=== PATIENT | female | born 1950 | race Caucasian/White ===

== ENCOUNTER 2020-04-24 12:25 | Outpatient (CLI) | payer MEDICARE, SELFPAY ==
--- NOTE | ~2020-04-24 | XR_ITS ---
EXAMINATION: XR chest 2V EXAM DATE: 04/24/2020 12:48 INDICATION: Abnormal EKG. TECHNIQUE: Frontal and lateral projections of the chest obtained and reviewed. Comparison is made to prior examination from 09/04/2016. FINDINGS: The lungs are clear. There are no pleural effusions. The cardiomediastinal silhouette is within normal limits. There is no pneumothorax suspected. Left axillary surgical clips. IMPRESSION: No acute cardiopulmonary findings. Reviewed, dictated and finalized at location A.
== END 2020-04-24 12:26 | disposition home or self-care (01) ==
PROVIDERS: PCP Family Medicine; Visit Provider Family Medicine
DX: E78.2 Mixed hyperlipidemia (principal); R73.9 Hyperglycemia, unspecified; R94.31 Abnormal electrocardiogram [ECG] [EKG]
CPT/HCPCS: 71046

== ENCOUNTER 2020-04-30 09:28 | Outpatient (CLI) | payer MEDICARE, SELFPAY ==
--- NOTE | 2020-04-30 | EST_ITS ---
Patient Info Name: Keke Mccracken Age: 69 years : 1950 Gender: Female Ht: 63 in Wt: 155 lbs BSA: 1.79 m2 Exam Date: 04/30/2020 11:01 AM Exam Location: [facility] Stress Patient Status: Outpatient Admit Date: 04/30/2020 Staff Ordering Physician: Jaylin Cadet MD Attending Provider: Jaylin Cadet MD Exercise Technologist: Perez Hou RDCS, RT Exercise Physician: Uzair Dempsey DO Exam Type: CA stress yobani w NM Study Info A regadenoson stress test was performed. Summary 1. 1. Negative lexiscan stress test for ischemic ST changes by ECG criteria. 2. 2. Baseline hypertension. 3. 3. Nuclear scan to follow and will be reported separately. Please correlate with it. 4. 4. Patient informed of the above results. Protocol: Lexiscan Stress ECG Details Stage: REST Duration (min): 2 min : 47 sec HR (bpm): 69 SBP (mmHg): 174 DBP (mmHg): 92 Stage: REST Duration (min): 7 min : 13 sec HR (bpm): 69 SBP (mmHg): 174 DBP (mmHg): 92 Stage: STAGE 1 Duration (min): 1 min : 0 sec HR (bpm): 88 SBP (mmHg): 174 DBP (mmHg): 92 Stage: RECOVERY Duration (min): 1 min : 0 sec HR (bpm): 96 SBP (mmHg): 182 DBP (mmHg): 74 Stage: RECOVERY Duration (min): 2 min : 0 sec HR (bpm): 94 SBP (mmHg): 167 DBP (mmHg): 80 Stage: RECOVERY Duration (min): 3 min : 0 sec HR (bpm): 90 SBP (mmHg): 158 DBP (mmHg): 82 Stage: RECOVERY Duration (min): 3 min : 15 sec HR (bpm): 94 SBP (mmHg): 158 DBP (mmHg): 82 Rest HR: 69 bpm Peak HR: 96 bpm Rest Sys BP: 174 mmHg Peak Sys BP: 182 mmHg Max Pred HR: 149 bpm % Max Pred HR: 64 % Target HR: 127 bpm Max RPP: 17,472 bpm*mmHg Termination Reason: Completed protocol Cardiac Symptoms: Headache Total Time: 1 min : 0 sec Rest Santos BP: 92 mmHg Peak Santos BP: 74 mmHg Total Dose: 0.4 mg Resting ECG Sinus rhythm, IRBBB. Stress ECG No ST changes. Arrhythmias None. Report Signatures
--- NOTE | ~2020-04-30 | NM_ITS ---
EXAMINATION: NM yobani stress w perfusion EXAM DATE: 04/30/2020 12:35 INDICATION: Abnormal electrocardiogram. TECHNIQUE: Rest images were obtained following intravenous administration of 9 mCi Tc99m tetrofosmin (Myoview). The patient was infused intravenously with Lexiscan (regadenoson). Then, 27.7 mCi Tc99m te trofosmin (Myoview) was administered intravenously, and stress images were obtained. Data was reconst ructed into short axis and horizontal and vertical long axis SPECT images. Gated SPECT images were al so obtained. There is no prior study for comparison. FINDINGS: There is no reversible or fixed perfusion abnormality to suggest ischemia or infarction. Th ere is normal left ventricular wall motion. End diastolic volume: 70 mL. End-systolic volume: 19 mL. Left ventricular ejection fraction: 73%. IMPRESSION: 1. Normal myocardial perfusion at rest and during stress. 2. Left ventricular ejection fraction measuring 73%. Reviewed, dictated and finalized at location B.
== END 2020-04-30 09:29 | disposition home or self-care (01) ==
LOC: ANHCARD 09:37
PROVIDERS: PCP Family Medicine; Visit Provider Family Medicine
DX: R94.31 Abnormal electrocardiogram [ECG] [EKG] (principal); I10 Essential (primary) hypertension
CPT/HCPCS: 78452; 93017; A9502; J2785

== ENCOUNTER 2020-05-01 17:19 | Outpatient (CLI) | payer MEDICARE, SELFPAY ==
--- NOTE | ~2020-05-01 | MM_ITS ---
EXAMINATION: MM screening leonor BI w sharad HISTORY: Screening TECHNIQUE: Craniocaudal and mediolateral oblique 3-D tomosynthesis images were obtained and synthetic 2-D images were generated. CAD analysis was submitted and interpreted. COMPARISON: Comparison to multiple prior studies sequentially, with oldest reviewed study dated 07/2013. BREAST PARENCHYMAL COMPOSITION: There are scattered areas of fibroglandular density. FINDINGS: There is no evidence of suspicious mass, calcification, or architectural distortion to sugg est malignancy in either breast. There has been no suspicious interval change. IMPRESSION: 1. No mammographic evidence of malignancy. 2. Recommend routine screening mammography in one year. BI-RADS Category 1: Negative Reviewed, dictated and finalized at location A.
== END 2020-05-01 17:20 | disposition home or self-care (01) ==
PROVIDERS: PCP Family Medicine; Visit Provider Family Medicine
DX: Z12.31 Encounter for screening mammogram for malignant neoplasm of breast (principal)
CPT/HCPCS: 77063; 77067

== ENCOUNTER 2021-07-30 14:55 | Outpatient (CLI) | payer MEDICARE, SELFPAY ==
--- NOTE | ~2021-07-30 | MM_ITS ---
EXAMINATION: MM screening leonor BI w sharad HISTORY: Screening mammogram, family history of breast cancer in her sister. TECHNIQUE: Craniocaudal and mediolateral oblique 3-D tomosynthesis images were obtained and synthetic 2-D images were generated. CAD analysis was submitted and interpreted. COMPARISON: 05/01/2020, 03/09/2019, 12/14/2017 BREAST PARENCHYMAL COMPOSITION: The right breast is heterogeneously dense, which may obscure small ma sses. There are scattered areas of fibroglandular density in the left breast. This discrepancy likely relates to prior treatment for left breast cancer. FINDINGS: There is no evidence of suspicious mass, calcification, or architectural distortion to sugg est malignancy in either breast. There has been no suspicious interval change. IMPRESSION: 1. No mammographic evidence of malignancy. 2. Recommend routine screening mammography in one year. BI-RADS Category 1: Negative Reviewed, dictated and finalized at location A. E EDITOR
== END 2021-07-30 14:56 | disposition home or self-care (01) ==
LOC: ANHIMG 14:56
PROVIDERS: PCP Family Medicine; Visit Provider Physician Assistant Medical
DX: Z12.31 Encounter for screening mammogram for malignant neoplasm of breast (principal)
CPT/HCPCS: 77063; 77067

== ENCOUNTER 2022-06-11 14:30 | Outpatient (CLI) | payer MEDICARE, SELFPAY ==
--- NOTE | ~2022-06-11 | DEXA_ITS ---
Bone Density Report Name: ERICH FERREIRA Age: 72 Sex: Female Ethnicity: White Date of : 1950 Indication: postmenopausal; screening for osteoporosis; height loss; cancer; hysterectomy; Referring Provider: KSENIA APARICIO Study: Bone densitometry was performed. Exam Date: June 11, 2022 Accession number: [id number] Bone Density: Region BMD T-score Z-score Classification AP Spine(L1-L4) 1.118 0.6 3.0 Normal Femoral Neck (Left) 0.751 -0.9 1.1 Normal Total Hip (Left) 0.924 -0.1 1.6 Normal Femoral Neck (Right) 0.737 -1.0 1.0 Normal Total Hip (Right) 0.895 -0.4 1.3 Normal Total Hip Mean 0.910 -0.3 1.5 Normal World Health Organization criteria for BMD impression classify patients as: Normal (T-score at or above -1.0), Osteopenia (T-score between -1.0 and -2.5), or Osteoporosis (T-score at or below -2.5). 10-year Fracture Risk: FRAX not reported because: All T-scores for Spine Total, Hip Total, Femoral Neck at or above -1.0 Previous Exams: Region Exam Age BMD T-score BMD Change BMD Change Date g/cm2 vs Baseline vs Previous Total Hip(Left) 06/11/2022 72 0.924 -0.1 -0.042 (-4.3%) -0.042 (-4.3%) 03/09/2019 68 0.966 0.2 Total Hip(Right) 06/11/2022 72 0.895 -0.4 -0.040 (-4.2%) -0.040 (-4.2%) 03/09/2019 68 0.935 -0.1 *Denotes significance at 95% confidence level, LSC for Total Hip = 0.027 g/cm2 Clinical Information Provided by Patient: Has used the following medications: Vitamin D Has the following medical conditions: Cancer, Hysterectomy Patient maximum height was 64 Menopause Age: 33 Drinks caffeinated beverages Onset of menses at age 8 Number of children 2 Impression: The patient has normal bone mass. The BMD for the Total Hip(Left) decreased, changing by -4.3% since the last DXA exam. The BMD for the Total Hip(Right) decreased, changing by -4.2% since the last DXA exam. Discussion: BONE DENSITY IS ABOVE THE MINIMUM DESIRABLE LEVEL AT ALL SKELETAL SITES TESTED. This patient?s bone mineral density is above the minimum desirable level (T-score -1.0 or better) at all sites measured. The patient should follow a healthful lifestyle (good nutrition with adequate calcium and vitamin D, and appropriate weight-bearing exercise). Follow-Up: Consider repeating this study in 3 to 4 years to reassess this patient's status, or sooner if there is some new clinical indication. Reported by: ALMA 06/11/2022 2:51:00 PM.
== END 2022-06-11 14:31 | disposition home or self-care (01) ==
PROVIDERS: PCP Family Medicine; Visit Provider Nurse Practitioner Family
DX: Z78.0 Asymptomatic menopausal state (principal)
CPT/HCPCS: 77080

== ENCOUNTER 2022-09-28 14:36 | Outpatient (CLI) | payer MEDICARE, SELFPAY ==
--- NOTE | ~2022-09-28 | MM_ITS ---
EXAMINATION: MM screening leonor BI w sharad HISTORY: Screening mammogram, family history of breast cancer in her sister. History of left breast c ancer TECHNIQUE: Craniocaudal and mediolateral oblique 3-D tomosynthesis images were obtained and synthetic 2-D images were generated. CAD analysis was submitted and interpreted. COMPARISON: 07/30/2021, 05/01/2020 BREAST PARENCHYMAL COMPOSITION: The right breast is heterogeneously dense which may obscure small mas ses. There are scattered areas of fibroglandular density in the left breast. This discrepancy likely relates to prior treatment for left breast cancer. FINDINGS: No suspicious mass, calcification, or architectural distortion are identified in either jessica ast to suggest malignancy. There has been no suspicious interval change. IMPRESSION: 1. No mammographic evidence of malignancy. 2. Recommend routine screening mammography in one year. BI-RADS Category 1: Negative Reviewed, dictated and finalized at location A. EN FRAME BUILDER
== END 2022-09-28 14:37 | disposition home or self-care (01) ==
PROVIDERS: PCP Family Medicine; Visit Provider Physician Assistant
DX: Z12.31 Encounter for screening mammogram for malignant neoplasm of breast (principal)
CPT/HCPCS: 77063; 77067

== ENCOUNTER → 2023-02-01 09:28 | Outpatient (CLI) | payer MEDICARE, SELFPAY ==
--- NOTE | ~2023-02-01 | XR_ITS ---
AP and oblique views of the left ribs Clinical History: Pain Findings: No rib fracture is seen. Osseous alignment is anatomic. Lungs are clear, without focal cons olidation or pleural effusion. Cardiomediastinal contour is within normal limits. Soft tissues are un remarkable. Impression: No rib fracture is seen. Reviewed, dictated and finalized at [facility]. Impression: No rib fracture is seen.
== END ==
PROVIDERS: PCP Family Medicine; Visit Provider Physician Assistant
DX: R07.81 Pleurodynia (principal)
CPT/HCPCS: 71101

== ENCOUNTER 2023-06-15 07:49 | Outpatient (CLI) | payer MEDICARE, SELFPAY ==
[2023-06-15 12:01] LABS: Basophils Absolute Auto 0.1 K/mm3 (0.0-0.1); Basophils Percent Auto 1.2 % (0.2-1.2); Eosinophils Absolute Auto 0.2 K/mm3 (0-0.3); Eosinophils Percent Auto 4.6 % (0-4.4); Hematocrit 46.5 % (37.0-47.0); Hemoglobin 15.1 g/dL (12.0-15.0); Immature Granulocyte Absolute 0.01 K/mm3 (0.00-0.031); Immature Granulocyte Percent A 0.2 % (0-0.5); Lymphocytes Absolute Auto 2.18 K/mm3 (0.9-3.2); Lymphocytes Percent Auto 41.8 % (18.3-44.2); Mean Corpuscular HGB Conc 32.5 g/dl (32-36); Mean Corpuscular Hemoglobin 30.5 pg (26-34); Mean Corpuscular Volume 93.9 fl (80-100); Mean Platelet Volume 10.8 fl (7.4-10.4); Monocytes Absolute Auto 0.6 K/mm3 (0.1-0.6); Monocytes Percent Auto 10.7 % (2.6-8.5); Neutrophils Absolute Auto 2.2 K/mm3 (1.3-6.7); Neutrophils Percent Auto 41.5 % (45.5-73.1); Platelet Count Result 241 k/mm3 (150-375); Red Blood Count 4.95 M/mm3 (4.2-5.4); Red Cell Distribution Width 12.2 % (11.5-14.5); White Blood Count 5.2 K/mm3 (4.5-10.0)
[2023-06-15 12:09] LABS: Alanine Aminotransferase 53 U/L (6-35); Albumin Level 4.4 g/dL (3.5-5.1); Alkaline Phosphatase 82 U/L (38-126); Anion Gap 8 mmol/L (8-16); Aspartate Amino Transferase 40 U/L (14-36); Bilirubin,Total 0.9 mg/dL (0.2-1.3); Blood Urea Nitrogen 14 mg/dL (7-17); Calcium 10.5 mg/dL (8.4-10.2); Carbon Dioxide 30 mmol/L (22-30); Chloride 101 mmol/L (98-107); Cholesterol 138 mg/dL (0-200); Estimated Glomerular Filt Rate > 60; Glucose 114 mg/dL (65-110); HDL Direct 51 mg/dL; Sodium 139 mmol/L (137-145); Triglycerides 98 mg/dL (<150)
[2023-06-15 12:20] LABS: LDL Cholesterol Direct 69 mg/dL
[2023-06-15 12:39] LABS: Hemoglobin A1C 6.2 % (<5.7)
[2023-06-15 13:01] LABS: Vitamin D 25 Hydroxy 36.1 ng/mL
[2023-06-15 13:36] LABS: Hepatitis C Virus Antibody Negative (Negative)
== END 2023-06-15 07:50 | disposition home or self-care (01) ==
LOC: ANHGOSHLAB 07:53
PROVIDERS: PCP Family Medicine; Visit Provider Physician Assistant
DX: R73.03 Prediabetes (principal); E66.3 Overweight; E55.9 Vitamin D deficiency, unspecified; E78.2 Mixed hyperlipidemia; I10 Essential (primary) hypertension; Z79.899 Other long term (current) drug therapy
CPT/HCPCS: 36415; 80053; 80061; 82306; 83036; 84443; 85025; 86803

== ENCOUNTER 2023-11-07 13:41 | Outpatient (CLI) | payer MEDICARE, SELFPAY ==
--- NOTE | ~2023-11-07 | MM_ITS ---
EXAMINATION: MM screening leonor BI w sharad HISTORY: Screening TECHNIQUE: Craniocaudal and mediolateral oblique 3-D tomosynthesis images were obtained and synthetic 2-D images were generated. CAD analysis was submitted and interpreted. COMPARISON: Comparison to multiple prior studies sequentially, with oldest reviewed study dated 12/08. BREAST PARENCHYMAL COMPOSITION: Dense: The breasts are heterogeneously dense, which may obscure small masses FINDINGS: There is no evidence of suspicious mass, calcification, or architectural distortion to sugg est malignancy in either breast. There has been no suspicious interval change. IMPRESSION: 1. No mammographic evidence of malignancy. 2. Recommend routine screening mammography in one year. BI-RADS Category 1: Negative Reviewed, dictated and finalized at location B.
== END 2023-11-07 13:42 | disposition home or self-care (01) ==
LOC: ANHIMG 13:43
PROVIDERS: PCP Family Medicine; Visit Provider Nurse Practitioner Family
DX: Z12.31 Encounter for screening mammogram for malignant neoplasm of breast (principal); Z85.3 Personal history of malignant neoplasm of breast
CPT/HCPCS: 77063; 77067

== ENCOUNTER 2023-12-08 07:50 | Outpatient (CLI) | payer MEDICARE, SELFPAY | END 2023-12-08 07:51 | disposition home or self-care (01) | LOC: ANHAUDIO 07:52 | PROVIDERS: PCP Family Medicine; Visit Provider Otolaryngology | DX: H90.3 Sensorineural hearing loss, bilateral (principal); H93.19 Tinnitus, unspecified ear | CPT/HCPCS: 92557; 92567 ==

== ENCOUNTER 2023-12-20 08:08 | Outpatient (CLI) | payer MEDICARE, SELFPAY ==
[2023-12-20 11:24] LABS: Alanine Aminotransferase 47 U/L (6-35); Albumin Level 4.3 g/dL (3.5-5.1); Alkaline Phosphatase 82 U/L (38-126); Anion Gap 4 mmol/L (4-12); Aspartate Amino Transferase 51 U/L (14-36); Bilirubin,Total 0.9 mg/dL (0.2-1.3); Blood Urea Nitrogen 17 mg/dL (7-17); Calcium 10.2 mg/dL (8.4-10.2); Carbon Dioxide 31 mmol/L (22-30); Chloride 103 mmol/L (98-107); Estimated Glomerular Filt Rate > 60; Glucose 131 mg/dL (65-110); Potassium 3.5 mmol/L (3.4-5.0); Sodium 138 mmol/L (137-145)
[2023-12-20 12:09] LABS: Hemoglobin A1C 6.4 % (<5.7)
== END 2023-12-20 08:09 | disposition home or self-care (01) ==
LOC: ANHGOSHLAB 08:10
PROVIDERS: PCP Family Medicine; Visit Provider Nurse Practitioner Family
DX: R74.8 Abnormal levels of other serum enzymes (principal); R73.01 Impaired fasting glucose; R73.03 Prediabetes
CPT/HCPCS: 36415; 80053; 83036

== ENCOUNTER 2024-05-29 08:34 | Outpatient (CLI) | payer MEDICARE, SELFPAY ==
[2024-05-29 19:00] LABS: Alanine Aminotransferase 41 U/L (6-35); Albumin Level 4.3 g/dL (3.5-5.1); Alkaline Phosphatase 80 U/L (38-126); Anion Gap 9 mmol/L (4-12); Aspartate Amino Transferase 39 U/L (14-36); Bilirubin,Total 0.8 mg/dL (0.2-1.3); Blood Urea Nitrogen 14 mg/dL (7-17); Calcium 10.3 mg/dL (8.4-10.2); Carbon Dioxide 28 mmol/L (22-30); Chloride 101 mmol/L (98-107); Cholesterol 149 mg/dL (0-200); Estimated Glomerular Filt Rate > 60; Glucose 116 mg/dL (65-110); HDL Direct 45 mg/dL; Potassium 3.9 mmol/L (3.4-5.0); Sodium 138 mmol/L (137-145); Triglycerides 96 mg/dL (<150)
[2024-05-29 19:11] LABS: LDL Cholesterol Direct 77 mg/dL
[2024-05-29 20:03] LABS: Creatinine Urine 172.6 mg/dL
[2024-05-29 20:07] LABS: MALB Creatinine Ratio 6.4 mg/g (0-30); Microalbumin Urine Random 11.1 mg/L (0-16.7)
[2024-05-29 20:56] LABS: Hemoglobin A1C 6.4 % (<5.7)
== END 2024-05-29 08:35 | disposition home or self-care (01) ==
PROVIDERS: PCP Family Medicine; Visit Provider Family Medicine
DX: R73.03 Prediabetes (principal); I10 Essential (primary) hypertension
CPT/HCPCS: 36415; 80053; 80061; 82043; 82607; 83036

== ENCOUNTER 2024-11-26 09:32 | Outpatient (CLI) | payer MEDICARE, SELFPAY ==
--- OUTSIDE RECORDS SUMMARY | 2024-11-26 10:10 | XMS_ITS | Continuity of Care Document ---
Author Organization [facility] Address [address] [place] [phone] Phone Care Team Providers Care Plant Utilities Engineer Name Role Phone Mercedes MARVIN MD, Jesus Unavailable Unavailable Procedures Procedure Date CATARACT SURG W/IOL, 1 STAGE CATARACT SURG W/IOL, 1 STAGE TORIC IOL NMN SURGERY TORIC IOL NMN SURGERY OFFICE/OUTPATIENT VISIT, [facility] OPHTHALMIC BIOMETRY OPHTHALMIC BIOMETRY DILATED EXAM RIGHT EYE DILATED EXAM LEFT EYE Advance Directives Directive Yes / No Effective Date File Name No Information Encounters Encounter Description Practice Location Reason(s) For Visit Diagnoses Date Provider Providers Copied on Encounter [facility], [address] [place] [address], [id number], tel:[phone] [address] [place] [address] No Information 6 Mercedes Lee. [address], [address], [place], [place], [id number] , [place]. [phone] Referring Provider: Jesus Long MD P, [address], [place], [address] . tel:[phone] [facility], [address] [place] [address], [id number], tel:[phone] [address] [place] [address] No Information 6 Mercedes Lee. [address], [address], [place], [place], [id number] , . tel:[phone] Referring Provider: Jesus Long MD P, [address], [place], [address] . tel:[phone] [facility], [address] [place] [address], [id number], tel:[phone] OPH CONSULT BRANDI ARIAS No Information 6 Mercedes Lee. [address], [address], [place], [place], [id number] , [place]. tel:[phone] Referring Provider: Jesus Long MD P, [address], [address] . tel:[phone] OFFICE/OUTPA TIENT VISIT, [facility], [address] [place] [address], [id number], tel:[phone] [facility] No Information 6 Mercedes Lee. [address], [address], [place], [place], [id number] , [place]. tel:[phone] Referring Provider: Jesus Long MD P, [address], [place], [address] . tel:[phone] Family History Family Member Type Diagnosis Age At Onset No Information Payers Payer name Insurance type Covered republican ID Authorgeoffa tifaisal(s) MEDICARE OF [facility] [id number] [facility] [id number] Social History Type Description Quantity Date Captured Comments Sex Female Smoking Status No Information Chief Complaint And Reason For Visit No Information Reason For Referral Reason For Referral No Information History Of Present Illness Encounter Date Complaint History Of Prese nt Illness No Information Functional Status Date Functional Assessmen t No Information Instructions Date Instruction Additional Infor mation No Information Assessments Type Assessment Date No Information Patient Care Teams Name Effective Dates (start - stop) Status Members No Information
--- OUTSIDE RECORDS SUMMARY | 2024-11-26 10:11 | XMS_ITS | Clinical Summary ---
Author Organization [facility] Address [address] [place] [address] Care Team Providers Care Cone Treater Name Role Phone Rebel Cadet MD Primary Care Provider [phone] Source Comments [facility] and Associated Physician Practices is amultiple site organization consisting of ambulatory clinics and hospital sitesin [place], [place], [place] and [place]. This disclosure is being madepursuant to the Care Everywhere program and may not contain all information available regarding this patient. Last updated 18.[facility] Allergies Active Allergy Reactions Criticality Noted Date Comments Diphenhydramine Other Low 05/08/2020 Makes pt jittery Penicillins Urticaria Medium 02/08/2020 Prednisone Other Low 05/08/2020 Makes pt jittery Medications * Be aware that medications may not be up to date on this document. Alwaysverify current medications with the patient. atorvastatin (LIPITOR) 20 MG tablet once daily 0 Active lisinopril (PRINIVIL; ZESTRIL) 10 MG tablet once daily 0 Active latanoprost (XALATAN) 0.005 % ophthalmic solution INT 1 GTT IN OU HS 0 Active timolol maleate (TIMOPTIC) 0.5 % ophthalmic solution PLACE 1 GTT IN BOTH EYES QAM. 0 Active acyclovir (ZOVIRAX) 800 MG tablet Take 1 tablet by mouth 2 times daily 0 Active Cholecalciferol (D3 PO) Take 1,000 Units by mouth once daily Active nebivolol (BYSTOLIC) 5 MG tablet Take 5 mg by mouth once daily 2 Active celecoxib (CELEBREX) 200 MG capsule Take 1 (one) capsule by mouth 2 times daily 60 capsule 2 Active HYDROcodone-shanna taminophen (NORCO) 10-325 MG tablet Take 0.5 (one-half) tablet to 1 (one) tablet by mouth every 6 hours as needed for Pain 28 tablet 2 Active clindamycin (Cleocin) 300 MG capsule TAKE 2 CAPSULES BY MOUTH 1 HOUR PRIOR TO APPOINTMENT 6 capsule 2 3 Active Active Problems Problem Noted Date Diagnosed Date Status post left knee replacement 05/30/2020 Primary osteoarthritis of both knees 02/08/2020 Social History Tobacco Use Types Packs/Day Years Used Date Smoking Tobacco: Never Smokeless Tobacco: Never Alcohol Use Standard Drinks/Week Comments Yes 5 (1 standard drink = 0.6 oz pur e alcohol) occasional Hunger Vital Sign Answer Date Recorded Within the past 12 months, y ou worried that your food would run out before you got the money to buy more. Never true 10/31/19 22 Within the past 12 months, t he food you bought just didn't last and you didn't have money to get more. Never true 10/30/2021 Comments Unknown Sex and Gender Information Value Date Recorded Sex Assigned at Female 07/31/2021 9:18 AM BUNDLE TIER AND LABELER Legal Sex Female 3:55 PM CDT Gender Identity Female 07/31/2021 9:18 AM BUNDLE TIER AND LABELER Sexual Orientation Straight 07/31/2021 9: 18 AM BUNDLE TIER AND LABELER Last Filed Vital Signs Vital Sign Reading Time Taken Comments Blood Pressure 147/69 10/30/2021 11:41 AM CDT Pulse 61 10/30/2021 11:41 AM CDT Temperature 36.5 C (97.7 F) 10/30/2021 11:41 AM CDT Respiratory Rate 16 10/30/2021 11:41 AM CDT Oxygen Saturation 96% 10/30/2021 11:41 AM CDT Inhaled Oxygen Concentration - - Weight 71.2 kg (157 lb) 10/29/2021 8:53 AM CDT Height 160 cm (5' 3 ) 10/29/2021 8:53 AM CDT Body Mass Index 27.81 10/29/2021 8:53 AM CDT Plan of Treatment Health Maintenance Due Date Last Done Comments BONE DENSITY TESTING 1950 MEDICARE AWV 12 MONTHS 1950 HEPATITIS C SCREENING 05/22/1966 DTAP/TDAP/TD VACCINES (1 - Tdap) 1967 PNEUMOCOCCAL VACCINE 50+ (1 of 1 - PCV) 1998 ZOSTER VACCINE (1 of 2) 1998 Respiratory Syncytial Virus (RSV) Vaccine Pt: or over 60 yrs (1 - 1-dose 75+ series) 2023 COVID-19 VACCINE (4 - 2023-2 5 season) 2024 06/07/2021, 10/23/2020, 09/25/2020 DEPRESSION SCREENING 07/25/2024 INFLUENZA VACCINE (Season Ended) 2025 06/02/2021, 05/17/2019, 05/16/2017 HEPATITIS B VACCINE Aged Out No longe r eligible based on patient's age to complete this topic HIB VACCINE Aged Out No longer eligi ble based on patient's age to complete this topic HPV VACCINE Aged Out No longer eligi ble based on patient's age to complete this topic MENINGOCOCCAL (Group B) VACCINE SHARED DECISION-MAKING Aged Out No longer eligible based on patient's age to complete this topic MENINGOCOCCAL GROUPS A/C/Y/W VACCINE Aged Out No longer eligible b ased on patient's age to complete this topic Medical Devices Implanted Type Area Senior Mechanical Project Engineer Device Identifier Shelf Expiration Date Model / Serial / Lot Cmnt Bone Djo Srg Cblt 40gm Hvisc Strl Implanted:Qty: 1 on 05/08/2020 by Keenan Coronado MD at [facility] Left: Knee [employer] 04/17/2021 600-15-000 / / [id number] Tray Tib 67mm Kn Cocr I Beam Implanted:Qty: 1 on 05/08/2020 by Keenan Coronado MD at [facility] Left: Knee [employer] 02/18/2030 [id number] / / [id number] Cmpnt Fem Kn Lt Cr Cmnt Prm Vngrd Intlk 62.5mm Implanted:Qty: 1 on 05/08/2020 by Keenan Coronado MD at [facility] Left: Knee [employer] 01/28/2030 [id number] / / [id number] Cmpnt Ptlr 28mm 1 Pg Wire Ascnt Arcm Kn Implanted:Qty: 1 on 05/08/2020 by Keenan Coronado MD at [facility] Left: Knee [employer] 03/07/2025311931 / / [id number] Brng [id number] Vngrd Arcm Kn Ant Stab Implanted:Qty: 1 on 05/08/2020 by Keenan Coronado MD at [facility] Left: Knee [employer] 08/01/2024 [id number] / / [id number] Brng [id number] Vngrd Arcm Kn Ant Stab Implanted:Qty: 1 on 10/29/2021 by Keenan Coronado MD at [facility] Right: Knee [employer] 06/08/2026 [id number] / / [id number] Cmnt Bone Djo Srg Cblt 40gm Hvisc Strl Implanted:Qty: 1 on 10/29/2021 by Keenan Coronado MD at [facility] Right: Knee [employer] 11/10/2022 600-15-000 / / [id number] Tray Tib 67mm Kn Cocr I Beam Implanted:Qty: 1 on 10/29/2021 by Keenan Coronado MD at [facility] Right: Knee [employer] 03/25/2031 [id number] / / [id number] Cmpnt Ptlr 28mm 1 Pg Wire Ascnt Arcm Kn Implanted:Qty: 1 on 10/29/2021 by Keenan Coronado MD at [facility] Right: Knee [employer] 10/05/2026172563 / / [id number] Cmpnt Fem Kn Rt Cr Cmnt Prm Vngrd Intlk Implanted:Qty: 1 on 10/29/2021 by Keenan Coronado MD at [facility] Right: Knee [employer] 09/03/2031 [id number] / / [id number] Insurance MEDICARE [facility] MEDICARE Advance Directives * Full Code (Latest Code Status on File) Date Activated Date Inactivated Comments 10/29/2021 2:37 PM 10/30/2021 3:31 PM * Full Code Date Activated Date Inactivated Comments 05/08/2020 11:02 AM 05/10/2020 4:03 PM Care Teams Cone Treater Relationship Specialty Start Date End Date Rebel Cadet MD [address] [place] [phone] PCP - General Family Medicine 02/08/20
[2024-11-26 12:57] LABS: Alanine Aminotransferase 64 U/L (6-35); Albumin Level 4.2 g/dL (3.5-5.1); Alkaline Phosphatase 95 U/L (38-126); Anion Gap 7 mmol/L (4-12); Aspartate Amino Transferase 50 U/L (14-36); Bilirubin,Total 0.7 mg/dL (0.2-1.3); Blood Urea Nitrogen 11 mg/dL (7-17); Carbon Dioxide 30 mmol/L (22-30); Chloride 100 mmol/L (98-107); Estimated Glomerular Filt Rate > 60; Glucose 119 mg/dL (65-110); Potassium 4.1 mmol/L (3.4-5.0); Sodium 137 mmol/L (137-145)
[2024-11-26 14:34] LABS: Hemoglobin A1C 6.2 % (<5.7)
== END 2024-11-26 09:33 | disposition home or self-care (01) ==
LOC: ANHGOSHLAB 09:33
PROVIDERS: PCP Family Medicine; Visit Provider Student in an Organized Health Care Education/Training Program
DX: R73.03 Prediabetes (principal); I10 Essential (primary) hypertension
CPT/HCPCS: 36415; 80053; 83036

== ENCOUNTER 2024-12-03 09:16 | Outpatient (CLI) | payer MEDICARE, SELFPAY ==
--- NOTE | ~2024-12-03 | US_ITS ---
Limited Abdominal Sonogram: Real-time sonographic imaging of the right upper quadrant was performed. Clinical History: Abnormal findings of blood chemistry Findings: The liver appears echogenic, with no evidence of mass lesion or bile duct dilatation. Main portal vein demonstrates normal direction of flow. The gallbladder is well distended, and appears no rmal with no evidence of gallstone or wall thickening. The common bile duct measures 4 mm. The visua lized pancreas, aorta, and IVC are unremarkable. Impression: Diffuse fatty infiltration of the liver. Reviewed, dictated and finalized at location M. Impression: Diffuse fatty infiltration of the liver.
== END 2024-12-03 09:17 | disposition home or self-care (01) ==
LOC: GOSHIMG 09:16
PROVIDERS: PCP Family Medicine; Visit Provider Family Medicine
DX: R79.89 Other specified abnormal findings of blood chemistry (principal); K76.0 Fatty (change of) liver, not elsewhere classified
CPT/HCPCS: 76705

== ENCOUNTER 2024-12-27 14:29 | Outpatient (CLI) | payer MEDICARE, SELFPAY ==
--- NOTE | ~2024-12-27 | MM_ITS ---
EXAMINATION: MM screening leonor BI w sharad HISTORY: Screening TECHNIQUE: Craniocaudal and mediolateral oblique 3-D tomosynthesis images were obtained and synthetic 2-D images were generated. CAD analysis was submitted and interpreted. COMPARISON: 11/07/2023 through 03/09/2019. BREAST PARENCHYMAL COMPOSITION: There are scattered areas of fibroglandular density. FINDINGS: There is no evidence of suspicious mass, calcification, or architectural distortion to sug gest malignancy in either breast. There has been no suspicious interval change. IMPRESSION: 1. No mammographic evidence of malignancy. 2. Recommend routine screening mammography in one year. BI-RADS Category 1: Negative Reviewed, dictated and finalized at location []
--- OUTSIDE RECORDS SUMMARY | 2024-12-27 15:12 | XMS_ITS | Continuity of Care Document ---
Author Organization [facility] Address [address] [place] [phone] Phone Care Team Providers Care First Assistant Name Role Phone Jesus Long MD, MD Unavailable Unavailable Procedures Procedure Date CATARACT SURG W/IOL, 1 STAGE CATARACT SURG W/IOL, 1 STAGE TORIC IOL NMN SURGERY TORIC IOL NMN SURGERY OFFICE/OUTPATIENT VISIT, [facility] OPHTHALMIC BIOMETRY OPHTHALMIC BIOMETRY DILATED EXAM RIGHT EYE DILATED EXAM LEFT EYE Advance Directives Directive Yes / No Effective Date File Name No Information Encounters Encounter Description Practice Location Reason(s) For Visit Diagnoses Date Provider Providers Copied on Encounter [facility], [address] [place] [address], [id number], tel:[phone] [address] [place] [address] No Information 6 Mercedes Lee. [address], [place], [place], [id number] , [place]. [phone] Referring Provider: Jesus Long MD P, [address], [place], [address] . tel:[phone] [facility], [address] [place] [address], [id number], tel:[phone] [address] [place] [address] No Information 6 Mercedes Lee. [address], [address], [place], [place], [id number] , . tel:[phone] Referring Provider: Jesus Long MD P, [address], [place], [address] . tel:[phone] [facility], [address] [place] [address], [id number], tel:[phone] OPH CONSULT BRANDI ARIAS No Information 6 Mercedes Lee. [address], [place], [place], [id number] , [place]. tel:[phone] Referring Provider: Jesus Long MD P, [address], [place], [address] . tel:[phone] OFFICE/OUTPA TIENT VISIT, [facility], [address] [place] [address], [id number], tel:[phone] [facility] No Information 6 Mercedes Lee. [address], [place], [place], [id number] , [place]. tel:[phone] Referring Provider: Jesus Long MD P, [address], [place], [address] . tel:[phone] Family History Family Member Type Diagnosis Age At Onset No Information Payers Payer name Insurance type Covered alliance party ID Authorgeoffa tifaisal(s) MEDICARE OF [facility] [id number] [facility] [id number] Social History Type Description Quantity Date Captured [...]
--- OUTSIDE RECORDS SUMMARY | 2024-12-27 15:12 | XMS_ITS | Clinical Summary ---
Author Organization [facility] Address [address] [place] [address] Care Team Providers Care Welding Machine Operator Electron Beam Name Role Phone Rebel Cadet MD Primary Care Provider [phone] Source Comments [facility],non-[facility] Affiliates and Associated Physician Practices is amultiple site organization consisting of ambulatory clinics and hospital sitesin [place], [place], [place] and [place]. This disclosure is being madepursuant to the Care Everywhere program and may not contain all information available regarding this patient. Last updated 18.[facility] Allergies Active Allergy Reactions Criticality Noted Date [...] Sex Assigned at Female 07/31/2021 9:18 AM TERMITE EXTERMINATOR Legal Sex Female 3:55 PM CDT Gender Identity Female 07/31/2021 9:18 AM TERMITE EXTERMINATOR Sexual Orientation Straight 07/31/2021 9: 18 AM TERMITE EXTERMINATOR Last Filed Vital Signs Vital Sign Reading [...] 8:53 AM CDT Height 160 cm (5' 3) 10/29/2021 8:53 AM CDT Body Mass Index [...] this topic Medical Devices Implanted Type Area [employer] Decorator Device Identifier Shelf Expiration Date Model / Serial / Lot Cmnt Bone Djo Srg Cblt 40gm Hvisc Strl Implanted:Qty: 1 on 05/08/2020 by Keenan Coronado MD at [facility] Left: Knee [employer] 04/17/2021 600-15-000 / / [id number] Tray Tib 67mm Kn Cocr I Beam Implanted:Qty: 1 on 05/08/2020 by Keenan Coronado MD at [facility] Left: Knee [employer] 02/18/2030 [id number] / / [id number] Cmpnt Fem Kn Lt Cr Cmnt Prm Vngrd Intlk 62.5mm Implanted:Qty: 1 on 05/08/2020 by Keenan Coronado MD at [facility] Left: Knee [employer] 01/28/2030 [id number] / / [id number] Cmpnt Ptlr 28mm 1 Pg Wire Ascnt Arcm Kn Implanted:Qty: 1 on 05/08/2020 by Keenan Coronado MD at [facility] Left: Knee [employer] 03/07/2025691186 / / [id number] Brng [id number] Vngrd Arcm Kn Ant Stab Implanted:Qty: 1 on 05/08/2020 by Keenan Coronado MD at [facility] Left: Knee [employer] 08/01/2024 [id number] / / [id number] Brng [id number] Vngrd Arcm Kn Ant Stab Implanted:Qty: 1 on 10/29/2021 by Keenan Coronado MD at [facility] Right: Knee [employer] 06/08/2026 [id number] / / [id number] Cmnt Bone Djo Srg Cblt 40gm Hvisc Strl Implanted:Qty: 1 on 10/29/2021 by Keenan Coronado MD at [facility] Right: Knee [employer] 11/10/2022 600-15-000 / / [id number] Tray Tib 67mm Kn Cocr I Beam Implanted:Qty: 1 on 10/29/2021 by Keenan Coronado MD at [facility] Right: Knee [employer] 03/25/2031 [id number] / / [id number] Cmpnt Ptlr 28mm 1 Pg Wire Ascnt Arcm Kn Implanted:Qty: 1 on 10/29/2021 by Keenan Coronado MD at [facility] Right: Knee [employer] 10/05/2026262267 / / [id number] Cmpnt Fem Kn Rt Cr Cmnt Prm Vngrd Intlk Implanted:Qty: 1 on 10/29/2021 by Keenan Coronado MD at [facility] Right: Knee [employer] 09/03/2031 [id number] / / [id number] Insurance MEDICARE [facility] MEDICARE Advance Directives * Full Code (Latest Code Status on File) Date Activated Date Inactivated Comments 10/29/2021 2:37 PM 10/30/2021 3:31 PM * Full Code Date Activated Date Inactivated Comments 05/08/2020 11:02 AM 05/10/2020 4:03 PM Care Teams Welding Machine Operator Electron Beam Relationship Specialty Start Date End Date Rebel Cadet MD [address] [place] [id number] PCP - General Family Medicine 02/08/20
== END 2024-12-27 14:30 | disposition home or self-care (01) ==
LOC: ANHIMG 14:30
PROVIDERS: PCP Family Medicine; Visit Provider Family Medicine
DX: Z12.31 Encounter for screening mammogram for malignant neoplasm of breast (principal)
CPT/HCPCS: 77063; 77067

== ENCOUNTER 2025-02-14 13:58 | Outpatient (CLI) | payer MEDICARE, SELFPAY ==
--- NOTE | ~2025-02-14 | DEXA_ITS ---
Bone Density Report Name: ERICH FERREIRA Age: 74 Sex: Female Ethnicity: White Date of : 1950 Indication: postmenopausal; screening for osteoporosis; height loss; cancer; hysterectomy; Referring Provider: ALEM MURILLO Study: Bone densitometry was performed. Exam Date: February 14, 2025 Accession number: [id number] Bone Density: Region BMD T-score Z-score Classification AP Spine(L1-L4) 1.111 0.6 3.1 Normal Femoral Neck (Left) 0.708 -1.3 0.9 Osteopenia Total Hip (Left) 0.886 -0.5 1.4 Normal Femoral Neck (Right) 0.709 -1.3 0.9 Osteopenia Total Hip (Right) 0.886 -0.5 1.4 Normal Total Hip Mean 0.886 -0.5 1.4 Normal World Health Organization criteria for BMD impression classify patients as: Normal (T-score at or above -1.0), Osteopenia (T-score between -1.0 and -2.5), or Osteoporosis (T-score at or below -2.5). 10-year Fracture Risk(1): Major Osteoporotic Fracture 11% Hip Fracture 2.0% Reported Risk Factors: [place] (), Neck BMD=0.708, BMI=28.4 (1) FRAX(R) Version 3.08. Fracture probability calculated for an untreated patient. Fracture probability may be lower if the patient has received treatment. Previous Exams: -- Region Exam Age BMD T-score BMD Change BMD Change Date g/cm2 vs Baseline vs Previous -- AP Spine (L1-L4) 02/14/2025 74 1.111 0.6 -0.6% -0.6% 06/11/2022 72 1.118 0.6 Total Hip(Left) 02/14/2025 74 0.886 -0.5 -4.1%* -4.1%* 06/11/2022 72 0.924 -0.1 Total Hip(Right) 02/14/2025 74 0.886 -0.5 -1.0% -1.0% 06/11/2022 72 0.895 -0.4 -- *Denotes significance at 95% confidence level, LSC for AP Spine = 0.022 g/cm2, LSC for Total Hip = 0.027 g/cm2 Clinical Information Provided by Patient: Has used the following medications: Vitamin D Has the following medical conditions: Cancer, Hysterectomy Patient maximum height was 64 Menopause Age: 33 Drinks caffeinated beverages Onset of menses at age 8 Number of children 2 Impression: The patient has low bone mass, based on the Left Femoral Neck T-score. The patient has an estimated ten-year risk of hip fracture of 2% and an estimated ten-year risk of major fracture of 11%, based on the WHO FRAX algorithm. The BMD for the Total Hip(Left) decreased, changing by -4.1% since the last DXA exam. Discussion: BONE DENSITY IS LOW AT ONE OR MORE SKELETAL SITES. This patient's lowest T-score is low at one or more skeletal sites. It meets the World Health Organization's (WHO) criteria for ?low bone mass? (T-score between -1.0 and -2.5). The patient's 10-year risk of fracture as calculated by FRAX is less than the threshold where pharmacological therapy is recommended by the National Osteoporosis Foundation (NOF). However, all treatment decisions require clinical judgment and consideration of individual patient factors, including patient preferences, comorbidities, previous drug use, risk factors not captured in the FRAX model (e.g., frailty, falls, vitamin D deficiency, increased bone turnover, interval significant decline in bone density) and possible under or overestimation of fracture risk by FRAX. The patient should follow a healthful lifestyle (good nutrition with adequate calcium and vitamin D, and appropriate weight-bearing exercise). Follow-Up: Consider repeating this study in 2 years to reassess this patient's status, or sooner if there is some new clinical indication. Reported by: ALMA on 02/14/2025 2:21:00 PM. Reviewed, dictated and finalized at location A.
== END 2025-02-14 13:59 | disposition home or self-care (01) ==
LOC: MICIMG 13:59
PROVIDERS: PCP Family Medicine; Visit Provider Family Medicine
DX: Z78.0 Asymptomatic menopausal state (principal); M85.852 Other specified disorders of bone density and structure, left thigh; M85.851 Other specified disorders of bone density and structure, right thigh
CPT/HCPCS: 77080